=== PATIENT | female | born 1940 | race African-American/Black ===

== ENCOUNTER 2018-03-27 09:05 | Inpatient (IN) | payer OTHER ==
[~2018-03-27] VITALS: Ht 157.5 cm; Wt 66.7 kg
[~2018-03-27 09:05] MED LIST: AMLO10TA4 PO; DOCU-138 PO; DONE5TAB7 PO; FLUT9.9S; KEPP500 PO; OCD PO; OMEP20TA2 PO; SERT25TA PO; [UNRECOGNIZED DRUG - OTHER] PO
[2018-03-27 09:53] LABS: EOSINOPHILS % 0.9 % (0.0-5.0); HEMATOCRIT. 43.8 % (36.0-48.0); HEMOGLOBIN. 14.6 g/dL (12.0-16.0); LYMPHOCYTES % 45.5 % (20.0-50.0); MEAN CORPUSCULAR HEMOGLOBIN 28.1 pg (28.0-32.0); MEAN CORPUSCULAR VOLUME 84.3 fL (81.0-99.0); MEAN PLATELET VOLUME 7.9 fl (7.4-10.4); MONOCYTES % 7.9 % (2.0-8.0); NEUTROPHILS % 44.7 % (40.0-76.0); PLATELET 202 x1000/uL (130-400); RED CELL DISTRIBUTION WIDTH 14.3 % (11.6-14.6)
[2018-03-27 10:21] LABS: CHLORIDE 106 mEq/L (98-107)
[2018-03-27 11:38] LABS: CLARITY URINE CLEAR (CLEAR); COLOR URINE YELLOW (YELLOW); KETONES URINE NEGATIVE (NEGATIVE); LEUKOCYTE ESTERASE URINE 1+ (NEGATIVE); NITRITE URINE NEGATIVE (NEGATIVE); OCCULT BLOOD URINE TRACE (NEGATIVE); PH URINE 7.5 (4.5-8.0); PROTEIN URINE NEGATIVE (NEGATIVE); SPECIFIC GRAVITY URINE 1.017 (1.005-1.030); UROBILINOGEN URINE 0.2 E.U./dL (0.2-1.0)
[2018-03-27 14:00] VITALS: BP 140/70
[2018-03-27 16:00] VITALS: BP 148/70
[2018-03-27] MEDS ORDERED: IPRATROPIUM/ALBUTEROL 0.5-3(2.5)MG/3ML NEB INH PRN (17:15)
[2018-03-27] MEDS ORDERED: MAGNESIUM/ALUMINUM HYDROXIDE/SIMETHICONE 30ML UDC PO PRN (17:15)
[2018-03-27] MEDS ORDERED: CLONIDINE 0.1MG TABLET PO PRN (17:15)
[2018-03-27] MEDS ORDERED: HYDROCODONE/ACETAMINOPHEN 5/325MG TABLET PO PRN (17:15)
[2018-03-27] MEDS ORDERED: ACETAMINOPHEN 325MG TABLET PO PRN (17:15)
[2018-03-27] MEDS ORDERED: ONDANSETRON HCL 4MG/2ML INJ IV PRN (17:15)
[2018-03-27] MEDS ORDERED: ACETAMINOPHEN 650MG SUPP PR PRN (17:15)
[2018-03-27] MEDS ORDERED: DIPHENHYDRAMINE 50MG/ML VIAL IV PRN (17:15)
[2018-03-27] MEDS ORDERED: GUAIFENESIN 200MG/10ML SUGAR FREE UDC PO PRN (17:15)
[2018-03-27] MEDS ORDERED: DOCUSATE SODIUM 100MG CAPSULE PO PRN (17:15)
[2018-03-27] MEDS ORDERED: NA PHOS,M-B/NA PHOS,DI-BA ENEMA 118ML PR PRN (17:15)
[2018-03-27] MEDS ORDERED: ACETAMINOPHEN 650MG/20.3ML UDC GT PRN (17:15)
[2018-03-27] MEDS ORDERED: MIDO10TA MT (17:57)
[2018-03-27] MEDS: LEVETIRACETAM 500MG TABLET PO SCH (18:00)
[2018-03-27] MEDS: DONEPEZIL HCL 5MG TABLET PO SCH (18:00)
[2018-03-27] MEDS: CALCIUM CARBONATE/VITAMIN D3 500MG TABLET PO SCH (18:01)
[2018-03-27] MEDS: AMLODIPINE 10MG TABLET PO SCH (18:01)
[2018-03-27 20:00] VITALS: BP_SYST 130; BP_SYST 140; BP_DIAS 65; BP_DIAS 68
[2018-03-27] MEDS: SODIUM CHLORIDE 0.9% INJ 3ML FLUSH IVF SCH (21:22)
[2018-03-28] VITALS: BP 134/80
[2018-03-28 01:01] LABS: CREATINE KINASE 120 IU/L (26-192)
[2018-03-28 01:02] LABS: CREATINE KINASE MB FRACTION < 1.0 ng/mL (0.5-3.6)
[2018-03-28 04:00] VITALS: BP 145/78
[2018-03-28] MEDS: SODIUM CHLORIDE 0.9% INJ 3ML FLUSH IVF SCH ×2 (06:00→12:19)
[2018-03-28 07:53] LABS: BASOPHILS % 0.6 % (0.0-2.0); HEMATOCRIT. 39.3 % (36.0-48.0); HEMOGLOBIN. 13.2 g/dL (12.0-16.0); LYMPHOCYTES % 32.5 % (20.0-50.0); MEAN CORPUSCULAR HEMOGLOBIN 28.3 pg (28.0-32.0); MEAN CORPUSCULAR VOLUME 83.7 fL (81.0-99.0); MEAN PLATELET VOLUME 8.1 fl (7.4-10.4); MONOCYTES % 11.3 % (2.0-8.0); NEUTROPHILS % 54.6 % (40.0-76.0); PLATELET 192 x1000/uL (130-400); RED BLOOD CELL COUNT 4.69 mill/uL (4.2-5.4); RED CELL DISTRIBUTION WIDTH 14.3 % (11.6-14.6)
[2018-03-28 08:08] VITALS: BP 158/74
[2018-03-28] MEDS: AMLODIPINE 10MG TABLET PO SCH (08:17)
[2018-03-28] MEDS: CALCIUM CARBONATE/VITAMIN D3 500MG TABLET PO SCH ×2 (08:17→17:54)
[2018-03-28] MEDS: LEVETIRACETAM 500MG TABLET PO SCH ×2 (08:18→17:54)
[2018-03-28] MEDS: DONEPEZIL HCL 5MG TABLET PO SCH (08:18)
[2018-03-28 08:29] LABS: CHLORIDE 106 mEq/L (98-107)
[2018-03-28 08:40] LABS: LDL CHOLESTEROL 107 mg/dL (5-100)
[2018-03-28 08:42] LABS: CREATINE KINASE 164 IU/L (26-192)
[2018-03-28 08:43] LABS: HDL CHOLESTEROL 69 mg/dL (40-59)
[2018-03-28 08:45] LABS: CREATINE KINASE MB FRACTION 1.4 ng/mL (0.5-3.6)
[2018-03-28 11:08] LABS: T4 FREE 1.55 ng/dL (0.76-1.46)
[2018-03-28 12:30] VITALS: BP 156/70
[2018-03-28 16:20] VITALS: BP 124/64
[2018-03-28 17:08] LABS: CREATINE KINASE 105 IU/L (26-192); CREATINE KINASE MB FRACTION < 1.0 ng/mL (0.5-3.6)
[2018-03-28 18:15] VITALS: BP 124/64
== END 2018-03-28 19:06 | disposition short-term general hospital (02) | DRG 312 ==
LOC: ER 09:18 → 6WST 10:38 → ENRESERV 12:43
PROVIDERS: ADMIT Family Medicine; ATTEND Family Medicine
DX: R55 Syncope and collapse (principal); E78.5 Hyperlipidemia, unspecified; F03.90 Unspecified dementia, unspecified severity, without behavioral disturbance, psychotic disturbance, mood disturbance, and anxiety; G40.909 Epilepsy, unspecified, not intractable, without status epilepticus; I10 Essential (primary) hypertension; Z86.73 Personal history of transient ischemic attack (TIA), and cerebral infarction without residual deficits
CPT/HCPCS: 36415; 70450; 71045; 80053; 80061; 81003; 82550; 82553; 83036; 83880; 84439; 84443; 84484; 85025; 85379; 93005; 93970; 97162; 99285